=== PATIENT | male | born 1990 | race Caucasian/White ===

== ENCOUNTER 2017-03-03 09:55 | Emergency (ER) | payer OTHER ==
--- NOTE | 2017-03-03 10:47 | EDPHY ---
H & P Stated Complaint: anemia 6.9 HBG Time Seen by Provider: 03/03/17 10:27 HPI/ROS: CHIEF COMPLAINT: "My hemoglobin is 6.9" HISTORY OF PRESENT ILLNESS: 26-year-old male with medical history significant for colitis, common variable immunodeficiency syndrome, history of gastrectomy , in the ER complaining of a hemoglobin of 6.9. 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 On February 22 he was at home and [place] with primary care provider where he had blood work performed as he was complaining of feeling fatigued for some time. He subsequently had a hemoglobin of 6.0, was then transfused 2 units of PRBCs with he subsequent hemoglobin of 8.5. On February 27 he was recheck it while in [place] and had a hemoglobin of 7.5. At that time he was also complaining of diarrhea had a stool culture performed which is positive for Aeromonas and was started on ciprofloxacin for 10 days. He is currently on day 5 of 10 of ciprofloxacin. Yesterday a he had a hemoglobin obtained, called in by his primary care provider to be performed in [place] and was subsequently had a hemoglobin of 6.9. His doctor called him this morning and told to go to the ER. He is not complaining of abdominal pain. States that his stools are more formed now. He is complaining of continued fatigue. No dizziness. No chest pain. No back pain. No urinary abnormality. PRIMARY CARE PROVIDER: in [place] REVIEW OF SYSTEMS: A ten point review of systems was performed and is negative with the exception of the items mentioned in the HPI PAST MEDICAL & SURGICAL HISTORY: Common variable immunodeficiency syndrome. Colitis. Gastrectomy June 2016 at [facility]. SOCIAL HISTORY: nonsmoker. 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 Thin. Appears to be in no acute distress. 2) HEAD: Normocephalic, atraumatic 3) HEENT: Pupils equal, round, reactive to light bilaterally. Sclera anicteric. 4) NECK: Full range of motion, no meningeal signs. 5) LUNGS: Clear auscultation bilaterally, no wheezes, no rhonchi, no retractions. 6) HEART: Regular rate and rhythm, no murmur, no heave, no gallop. 7) ABDOMEN: multiple laparoscopic surgical scars noted. Flat abdomen. No guarding, no rebound, no focal tenderness, negative McBurney's, negative Yen' s, negative Rovsing's, negative peritoneal sign, 8) MUSCULOSKELETAL: Moving all extremities, no focal areas of tenderness, no obvious trauma. No peripheral edema or discoloration. 9) BACK: No CVA tendernes. 10) SKIN: Pylorus.No rash, no petechiae. 11) Rectal: Brown stool on glove DIFFERENTIAL DIAGNOSIS: in no particular order including but not limited to anemia, GI bleed, malignancy - Personal History Current Tetanus/Diphtheria Vaccine: Yes Current Tetanus Diphtheria and Acellular Pertussis (TDAP): Yes - Medical/Surgical History Hx Asthma: No Hx Chronic Respiratory Disease: No Hx Diabetes: No Hx Cardiac Disease: No Hx Renal Disease: No Hx Cirrhosis: No Hx Alcoholism: No Hx HIV/AIDS: No Hx Splenectomy or Spleen Trauma: No Other PMH: CVID, colitis - Social History Smoking Status: Never smoked Constitutional: Initial Vital Signs Temperature (C) 36.4 C 03/03/17 10:03 Heart Rate 84 03/03/17 10:03 Respiratory Rate 14 03/03/17 10:03 Blood Pressure 126/83 H 03/03/17 10:03 O2 Sat (%) 98 03/03/17 10:03 O2 Delivery Mode Room Air Allergies/Adverse Reactions: Penicillins Allergy (Verified 03/03/17 10:08) sulfamethoxazole [From Bactrim] Allergy (Verified 03/03/17 10:08) trimethoprim [From Bactrim] Allergy (Verified 03/03/17 10:08) Home Medications: Medication Instructions Recorded Ciprofloxacin [Cipro] 500 mg PO BID 03/03/17 IMMUNE GLOBULIN,GAMMA (IGG) 10 gm SQ Q3D 03/03/17 [GAMMAR-P I.V] Multivitamins [Multivitamin (*)] 1 each PO DAILY 03/03/17 Medical Decision Making ED Course/Re-evaluation: The patient was re-evaluated with serial examinations and the case discussed with secondary supervising physician Dr. Nunes. The specific etiology of his anemia is not completely clear. He has a negative stool guaiac study. He is noted to be trending downward with his hemoglobin since March 25. Patient has extensive records about the his laboratory results from out of state hospitals. He complains of continued fatigue. We recommended admission. Phone consultation with hospitalist Dr. Nieto, admit to Dr. Beatty. - Data Points Laboratory Results: Laboratory Results 03/03/17 10:46 03/03/17 10:46 03/03/17 03/03/17 03/03/17 10:46 10:46 10:46 WBC RBC Hgb Hct MCV MCH MCHC RDW Plt Count MPV Neut % (Auto) Lymph % (Auto) Blackford % (Auto) Eos % (Auto) Baso % (Auto) Nucleat RBC Rel Count Absolute Neuts (auto) Absolute Lymphs (auto) Absolute Monos (auto) Absolute Eos (auto) Absolute Basos (auto) Absolute Nucleated RBC Immature Gran % Immature Gran # PT 13.3 SEC SEC (12.0-15.0) INR 1.02 (0.83-1.16) APTT 30.1 SEC SEC (23.0-38.0) Sodium 141 mEq/L mEq/L (134-144) Potassium 3.8 mEq/L mEq/L (3.5-5.2) Chloride 103 mEq/L mEq/L (97-110) Carbon Dioxide 25 mEq/l mEq/l (22-31) Anion Gap 13 mEq/L mEq/L (8-16) BUN 10 mg/dL mg/dL (7-23) Creatinine 0.6 mg/dL L mg/dL (0.7-1.3) Estimated GFR > 60 Glucose 105 mg/dL H mg/dL (70-100) Calcium 9.2 mg/dL mg/dL (8.5-10.4) Patient ABO/Rh O POSITIVE Antibody Screen NEGATIVE REJI, Polyspecific Pending Crossmatch IS Only See Detail 03/03/17 10:46 WBC 9.33 10^3/uL 10^3/uL (3.80-9.50) RBC 2.27 10^6/uL L 10^6/uL (4.40-6.38) Hgb 7.3 g/dL L g/dL (13.7-17.5) Hct 20.9 % L % (40.0-51.0) MCV 92.1 fL fL (81.5-99.8) MCH 32.2 pg pg (27.9-34.1) MCHC 34.9 g/dL g/dL (32.4-36.7) RDW 13.6 % % (11.5-15.2) Plt Count 256 10^3/uL 10^3/uL (150-400) MPV 9.1 fL fL (8.7-11.7) Neut % (Auto) 62.9 % % (39.3-74.2) Lymph % (Auto) 25.8 % % (15.0-45.0) Blackford % (Auto) 10.9 % % (4.5-13.0) Eos % (Auto) 0.0 % L % (0.6-7.6) Baso % (Auto) 0.0 % L % (0.3-1.7) Nucleat RBC Rel Count 0.0 % % (0.0-0.2) Absolute Neuts (auto) 5.86 10^3/uL 10^3/uL (1.70-6.50) Absolute Lymphs (auto) 2.41 10^3/uL 10^3/uL (1.00-3.00) Absolute Monos (auto) 1.02 10^3/uL H 10^3/uL (0.30-0.80) Absolute Eos (auto) 0.00 10^3/uL L 10^3/uL (0.03-0.40) Absolute Basos (auto) 0.00 10^3/uL L 10^3/uL (0.02-0.10) Absolute Nucleated RBC 0.00 10^3/uL 10^3/uL (0-0.01) Immature Gran % 0.4 % % (0.0-1.1) Immature Gran # 0.04 10^3/uL 10^3/uL (0.00-0.10) PT INR APTT Sodium Potassium Chloride Carbon Dioxide Anion Gap BUN Creatinine Estimated GFR Glucose Calcium Patient ABO/Rh Antibody Screen REJI, Polyspecific Crossmatch IS Only Departure - Departure Disposition: [facility] Inpatient Acute Clinical Impression: CVI (common variable immunodeficiency) Fatigue Qualifiers: Fatigue type: chronic, unspecified Qualified Code(s): R53.82 - Chronic fatigue , unspecified Anemia Qualifiers: Anemia type: unspecified type Qualified Code(s): D64.9 - Anemia, unspecified Condition: Fair
[2017-03-03 10:58] LABS: % IMMATURE GRANULYOCYTES 0.4 % (0.0-1.1); ABSOLUTE IMMATURE GRANULOCYTES 0.04 10^3/uL (0.00-0.10); ADD DIFF? NO; ADD MORPH? NO; ADD SCAN? NO; ATYPICAL LYMPHOCYTE FLAG 60 (0-99); FRAGMENT RBC FLAG 0 (0-99); HEMATOCRIT 20.9 % (40.0-51.0); HEMOGLOBIN 7.3 g/dL (13.7-17.5); LEFT SHIFT FLG 0 (0-99); LIPEMIA HEMOLYSIS FLAG 90 (0-99); MEAN CELL HEMOGLOBIN 32.2 pg (27.9-34.1); MEAN CELL HEMOGLOBIN CONCENTR. 34.9 g/dL (32.4-36.7); MEAN CELL VOLUME 92.1 fL (81.5-99.8); MEAN PLATELET VOLUME 9.1 fL (8.7-11.7); PLATELET CLUMPS FLAG 0 (0-99); PLATELET COUNT 256 10^3/uL (150-400); RED BLOOD CELL COUNT 2.27 10^6/uL (4.40-6.38); RED CELL DISTRIBUTION WIDTH 13.6 % (11.5-15.2)
[2017-03-03 11:17] LABS: APTT 30.1 SEC (23.0-38.0); INR 1.02 (0.83-1.16); PROTIME(PATIENT) 13.3 SEC (12.0-15.0)
[2017-03-03 11:18] LABS: ANION GAP 13 mEq/L (8-16); CALCIUM 9.2 mg/dL (8.5-10.4); CARBON DIOXIDE 25 mEq/l (22-31); CHLORIDE 103 mEq/L (97-110); CREATININE 0.6 mg/dL (0.7-1.3); GLOMERULAR FILTRATION RATE > 60; GLUCOSE 105 mg/dL (70-100); POTASSIUM 3.8 mEq/L (3.5-5.2); SODIUM 141 mEq/L (134-144)
[2017-03-03 12:08] VITALS: O2SAT 96
[2017-03-03 14:04] VITALS: BP 107/60; PULSE 85; RESP 14; TEMP 96.8
--- NOTE | 2017-03-03 14:25 | GCON ---
[f rep st] CONSULTATION I was asked by Dr. Beatty to evaluate this very pleasant 26-year-old male with anemia. To review, this patient has a number of medical issues, including a history of ulcerative colitis, common variable immunodeficiency, and a recent gastrectomy for high-grade dysplasia, who has recently been discovered to have significant anemia. My understanding is a few weeks ago he was having some increasing fatigue and a CBC showed a hemoglobin of 6. He was transfused 2 units of packed RBCs with a rise in his hemoglobin 8.5. On February 27, 2017, while in [place], his hemoglobin was 7.5, he had some diarrhea and a stool culture was positive for Aeromonas, and he was started on Cipro for 10 days. A hemoglobin yesterday was 6.9, and he was directed to the emergency room. He tells me that his workup has included a reticulocyte count, which is normal, serum ferritin which is normal, a B12 level which is normal, and a haptoglobin which is normal , although I do not have formal results of those labs. He currently feels tired , has mild dyspnea on exertion. He denies any pain. In terms of his CVID, he was diagnosed in about 2009. He feels that it has been well managed with subcutaneous immunoglobulin injections, which he does himself, and said his incidences of infectious complications have decreased markedly. The ulcerative colitis has been present for a few years, he feels it is well-controlled on Entyvio, which has recently been added to his regimen. He tells me a colonoscopy done fairly recently showed definite improvement in his colitis, although still some left-sided disease. In terms of the gastrectomy, he had an upper GI endoscopy which showed high-grade dysplasia, and he tells me that a gastrectomy was performed in June of 2016 at the [facility]. Apparently a small focus of invasive cancer was noted at that time, but lymph nodes were negative, and no additional therapy was recommended. 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 REVIEW OF SYSTEMS: Negative except for the issues discussed in the HPI. FAMILY HISTORY: Unremarkable. PHYSICAL EXAMINATION: GENERAL: He is a pleasant-appearing male, somewhat pale. VITAL SIGNS: Blood pressure 114/68, O2 saturation 96% on room air, saturation 96%, temperature 98.4. HEENT: He is not icteric. Pharynx is unremarkable. NECK: I detect no cervical, supraclavicular, or axillary adenopathy. LUNGS: Clear to auscultation and percussion. CARDIAC: Normal S1 and S2, without murmurs, clicks or added sounds. ABDOMEN: Shows some laparoscopic surgery scars, but is otherwise scaphoid and benign. There is no inguinal adenopathy. EXTREMITIES: Unremarkable. LABORATORY DATA: White count today is 9.33, hemoglobin 7.3, hematocrit 20.9, platelets are 256,000. Coags are unremarkable. Basic chemistry panel is unremarkable. A stool for occult blood is negative. IMPRESSION: Patient with fairly significant anemia, probably a recent onset. He tells me he has had very mild anemias in the past with hemoglobin in the 12 range or so. The etiology is unclear. He certainly has some potential reasons why he could be anemic, i.e. he has ulcerative colitis, and certainly could have some blood loss and iron deficiency from that, but by report his ferritin is normal, he really denies any recent bleeding, and he has a negative stool for occult blood. Similarly, he could certainly have malabsorption from CVID and his gastrectomy, but he tells me he takes B12 and iron, and again iron stores have been unremarkable, and a recent B12 is reportedly normal. He does have some autoimmune issues and certainly an autoimmune hemolytic anemia is a potential consideration, but again if his reticulocyte count is normal that would tend to rule against this, as would a normal haptoglobin. He may need a bone marrow biopsy to help sort this out. My thought is to transfuse him 2 units of packed red blood cells, and then we should follow him up in the office in a week or so to see how he is doing. I would like to check today a direct Ben, a ferritin, folate, quantitative immunoglobulins, serum protein electrophoresis, serum free light chain analysis, LDH. lead profile, reticulocyte count, B12, and liver function tests. I would like to thank Dr. Beatty for the opportunity to see this very pleasant patient in consultation. /[id number]/MODL MTDD
[2017-03-03 14:53] LABS: HEMATOCRIT 19.2 % (40.0-51.0)
[2017-03-03 15:39] LABS: ALANINE AMINOTRANSFERASE 44 IU/L (21-72); ALBUMIN 3.9 g/dL (3.5-5.0); ALKALINE PHOSPHATASE 63 IU/L (38-126); ASPARTATE AMINOTRANSFERASE 38 IU/L (17-59); BILIRUBIN,TOTAL 0.4 mg/dL (0.1-1.4); BILIRUBIN-CONJUGATED 0.3 mg/dL (0.0-0.5); BILIRUBIN-UNCONJUGATED 0.1 mg/dL (0.0-1.1); LACTATE DEHYDROGENASE 331 IU/L (313-618); TOTAL PROTEIN 6.5 g/dL (6.3-8.2)
[2017-03-03 16:42] LABS: FOLATE SERUM > 20.00 ng/mL (2.80 - >20.00)
--- NOTE | 2017-03-03 20:27 | GCON ---
[f rep st] CONSULTATION REFERRING PHYSICIAN: PIOTR Harrison REASON FOR CONSULTATION: Anemia. CHIEF COMPLAINT: Acute fatigue. HPI: A 26-year-old male, presenting with acute fatigue characterized as low energy, with associated nausea, vomiting, and poor oral intake, as well as nonbloody diarrhea, and pain located in his abdo men with onset of those GI symptoms approximately 10 days ago, and the fatigue onset approximately 1 month ago. Fatigue duration has been constant and has resulted in inability to perform any amount of exercise, which would otherwise be normal for the patient. He reports that his abdominal symptom s were alleviated after he initiated ciprofloxacin on 02/27. 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 The patient was experiencing fatigue and he saw his family provider on February 22. His hemoglobin level was 6 at th at time and he received 2 units of packed red blood cells. This temporarily alleviated his fatigue. He then traveled back to [place], where he began experiencing the aforementioned GI symptoms a nd he saw his provider on 02/27, who performed a stool sample, which demonstrated Aeromonas. Ciprof loxacin was prescribed at that time. Hemoglobin level was 7.5. His outpatient provider ordered a r epeat hemoglobin level to be drawn today, and the patient had a local lab perform this, and it demon strated hemoglobin level of 6.9. He was contacted by his outpatient provider and it was recommended that he go to the emergency department. The patient otherwise denies any fever, chills, hematochez ia or melena. REVIEW OF SYSTEMS: Significant for fatigue, diarrhea, abdominal pain, nausea, vomiting. All other 10-point review of systems otherwise negative. PAST MEDICAL HISTORY: 1. Common variable immunodeficiency diagnosed in 2009, with numerous GI infections including Crypto coccus, C diff, norovirus, Salmonella. 2. Chronic anemia with baseline hemoglobin level around 12.5, most recently checked in January 2017. 3. Ulcerative colitis, currently on Entyvio, most recent dosage 02/24/2017. 4. Aeromonas GI infection, as outlined above. 5. Diffuse high-grade dysplasia of the stomach. PAST SURGICAL HISTORY: Gastrectomy in June 2016. HOME MEDICATION: Entyvio. SOCIAL HISTORY: The patient does not smoke. He is an avid runner, but he has not recently been abl e to perform exercise secondary to symptoms above. FAMILY HISTORY: No family history of anemia. ALLERGIES: Penicillin and Bactrim both produce hives and edema. PHYSICAL EXAMINATION: VITAL SIGNS: Systolic blood pressure 126, heart rate 84, respirations 14, O2 saturation 98% on room air, temperature 36.4. GENERAL: Alert, awake, oriented x3. No apparent di stress. Pain level 0/10. EYES: Anicteric sclerae. Extraocular movements intact. ENT: Moist muc ous membranes, no glossitis or oral lesions. GASTROINTESTINAL: Bowel sounds are present. ABDOMEN: Soft, nontender, nondistended. No masses are palpated. SKIN: No ecchymoses, no abrasions. CARD IAC: Regular rate and rhythm. No murmurs, rubs, or gallops appreciated. RESPIRATORY: Clear to au scultation bilaterally. No crackles. No wheezes. MUSCULOSKELETAL: Normal bulk and tone of his fredi ateral lower extremities with normal range of motion. DATA: Fecal occult blood negative, hemoglobin 7.3, platelets 260,000, new white blood cell count 93 00, creatinine 0.6, BUN 10. ASSESSMENT: A 26-year-old male presenting with [id number] anemia in the setting of common amandeep iable immunodeficiency, as well as ulcerative colitis. PLAN: 1. Anemia. Acute on chronic, new problem to this provider, further workup indicated. Most likely etiology is reduction in marrow production given that he reports his outside records recently reveal ed a low reticulocyte count, normal LDH, elevated haptoglobin level. That being said, given the maria kennedy's recent infection, we should rule out a hemolytic process, and we will repeat the reticulocyte count, as well as bilirubin level, LDH, B12 and folate. It seems unlikely that he is experiencing acute blood loss given that his BUN is normal and his fecal occult blood is unremarkable. Consequen tly, the patient does not appear to be in imminent danger of rapid reduction in his blood count, and a blood transfusion of 2 units with close outpatient monitoring seems appropriate at this time. I have discussed this with Dr. Maria Del Angel, and he will arrange for the [facility], and then follow up closely with outpatient lab draws at [facility]. I have also discussed this with Junior Moses, in the emergency department, and the emerge njy department provider is comfortable with discharging the patient from the ED after he has receive d transfusion. 2. Common variable immunodeficiency. The patient has chronic immunodeficiency with recent GI patho gen, notably Aeromonas. I recommend that he continue taking ciprofloxacin. I do not believe that t he Aeromonas or the ciprofloxacin are contributing to his anemia, as outlined above. The patient do es not currently have an indication to be seen by an infectious disease provider, but if any other a nomalies are uncovered while the patient is seeing Dr. Del Angel at [facility] that wo uld warrant further infectious disease monitoring or outpatient maintenance for chronic immunosuppre ssion, then a referral to the [facility] should be provided at that time. 3. The patient can be safely discharged from the emergency department after he receives 2 units of packed red blood cells and, of note, I have checked his labs, which indicate no evidence of hemolysi s. It was a pleasure serving on the care team for this patient. /[id number]/MODL
[2017-03-07 10:52] LABS: IMMUNOGLOBULIN A 3 mg/dL (61 - 356); IMMUNOGLOBULIN G 1110 mg/dL (767 - 1590); IMMUNOGLOBULIN M <5 mg/dL (37 - 286)
[2017-03-07 12:50] LABS: LEAD BLOOD <1.0 mcg/dL (0.0-4.9); VENOUS/CAPILLARY Venous
== END 2017-03-03 17:30 | disposition home or self-care (01) ==
LOC: UNDOADMOB 12:16
PROC: 30233N1 Transfusion of Nonautologous Red Blood Cells into Peripheral Vein, Percutaneous Approach (ICD-10-PCS; principal; 2017-03-03)
DX: D83.9 Common variable immunodeficiency, unspecified (principal); D64.89 Other specified anemias; K51.90 Ulcerative colitis, unspecified, without complications
CPT/HCPCS: 99285; P9016; 82607-90; 82784-90; 83655-90

== ENCOUNTER → 2017-03-20 | Outpatient (CLI) | payer OTHER ==
[~2017-03-20] MED LIST: ACETAMINOPHEN 325 MG TAB PO ONE; diphenhydrAMINE 25 MG CAP PO ONE
== END ==
LOC: FOBOP 12:49
PROVIDERS: ATTEND Internal Medicine Hematology & Oncology
PROC: 30233N1 Transfusion of Nonautologous Red Blood Cells into Peripheral Vein, Percutaneous Approach (ICD-10-PCS; principal; 2017-03-20)
DX: D64.9 Anemia, unspecified (principal)
CPT/HCPCS: 36430; P9016

== ENCOUNTER 2017-04-01 09:54 | Outpatient (CLI) | payer OTHER ==
[2017-04-01 10:28] VITALS: BP 111/61; PULSE 91; RESP 16; TEMP 98.8; O2SAT 100
[2017-04-01] MEDS ORDERED: diphenhydrAMINE 25 MG CAP PO ONE (10:30)
[2017-04-01] MEDS ORDERED: ACETAMINOPHEN 325 MG TAB PO ONE (10:30)
== END 2017-04-01 13:30 | disposition home or self-care (01) ==
LOC: FOBOP 09:54 → EDSTATUS 12:15 → FOBOP 13:30
PROVIDERS: ATTEND Internal Medicine Hematology & Oncology
PROC: 30233N1 Transfusion of Nonautologous Red Blood Cells into Peripheral Vein, Percutaneous Approach (ICD-10-PCS; principal; 2017-04-01)
DX: D64.9 Anemia, unspecified (principal)
CPT/HCPCS: 36430; P9016

== ENCOUNTER 2017-04-29 14:13 | Outpatient (CLI) | payer OTHER ==
[2017-04-29] MEDS ORDERED: diphenhydrAMINE 25 MG CAP PO ONE (14:30)
[2017-04-29] MEDS ORDERED: ACETAMINOPHEN 325 MG TAB PO ONE (14:30)
[2017-04-29 15:03] VITALS: BP 102/80; PULSE 99; RESP 17; TEMP 98.8; O2SAT 99
== END 2017-04-29 18:02 | disposition home or self-care (01) ==
LOC: F1NOP 14:13 → FOBOP 14:13 → F1NOP 18:02
PROVIDERS: ATTEND Internal Medicine Hematology & Oncology
PROC: 30233N1 Transfusion of Nonautologous Red Blood Cells into Peripheral Vein, Percutaneous Approach (ICD-10-PCS; principal; 2017-04-29)
DX: D64.9 Anemia, unspecified (principal)
CPT/HCPCS: P9016